=== PATIENT | female | born 1980 | race Caucasian/White ===

== ENCOUNTER 2021-08-23 03:54 | Emergency (ER) | payer BC ==
[2021-08-23] MEDS ORDERED: Ketorolac Tromethamine 30 MG/ML VIAL ONE (04:08)
[2021-08-23] MEDS ORDERED: Orphenadrine Citrate 60 MG/2 ML VIAL IM SCH (04:15)
[2021-08-23 04:38] LABS: #Basophils 0.1 thou/uL (0.0-0.2); #Eosinphils 0.1 thou/uL (0.0-0.7); #Lymphocytes 2.2 thou/uL (1.20-3.40); #Monocytes 0.5 thou/uL (0.11-0.59); #Neutrophils 3.6 thou/uL (1.40-6.50); %Basophils 1.4 % (0.0-1.0); %Eosinophils 1.5 % (0.0-10.0); %Lymphocytes 33.6 % (21.0-51.0); %Neutrophils 56.5 % (42.0-75.0); Hemoglobin 10.5 g/dL (12.0-16.0); Mean Corpuscular HGB CONC 31.6 g/dL (32.0-36.0); Mean Corpuscular Hemoglobin 27.3 pg (27.0-31.0); Mean Corpuscular Volume 86.5 fL (78.0-98.0); Mean Platelet Volume 8.5 fL (7.4-10.4); Platelet Count 263 thou/uL (130-400); RBC Distribution Width 13.7 % (11.5-14.5); Red Blood Cell (RBC) Count 3.86 mill/uL (4.20-5.40); White Blood Cell (WBC) Count 6.4 thou/uL (4.8-10.8)
[2021-08-23 04:58] LABS: ALT (SGPT) 39 U/L (8-55); AST (SGOT) 114 U/L (5-34); Albumin 3.9 g/dL (3.5-5.0); Alkaline Phosphatase 52 U/L (40-110); Anion Gap 13 mmol/L (10-20); BUN (Urea Nitrogen) 10 mg/dL (7.0-18.7); Bilirubin, Total 0.6 mg/dL (0.2-1.2); Calc. Creatinine Clearance 0 mL/min (70-130); Calcium 8.6 mg/dL (7.8-10.44); Carbon Dioxide 23 mmol/L (22-29); Chloride 107 mmol/L (98-107); Globulin 2.4 g/dL (2.4-3.5); Glucose 94 mg/dL (70-105); Potassium 3.7 mmol/L (3.5-5.1); Protein, Total 6.3 g/dL (6.0-8.3); Sodium 139 mmol/L (136-145)
[2021-08-23] MEDS ORDERED: Ondansetron PF 4 MG/2 ML Vial ONE (05:19)
[2021-08-23] MEDS ORDERED: Morphine 4 MG/ML VIAL ONE (05:19)
[2021-08-23] MEDS ORDERED: Morphine 2 MG/ML VIAL ONE (06:15)
== END 2021-08-23 06:25 | disposition home or self-care (01) ==
LOC: ERS 03:54
DX: M25.511 Pain in right shoulder (principal); F17.210 Nicotine dependence, cigarettes, uncomplicated
CPT/HCPCS: 36415; 71045; 80053; 84484; 85025; 93005; 96372; 96374; 96375; 96376; J1885; J2270; J2360; J2405

== ENCOUNTER 2022-11-15 12:32 | Outpatient (CLI) | payer BC ==
[~2022-11-15 12:32] MED LIST: Magnevist 469MG/ML 20 ML VIAL ONE
== END 2022-11-15 12:33 | disposition home or self-care (01) ==
LOC: BICMRI 12:32
PROVIDERS: ATTEND Orthopaedic Surgery Hand Surgery
DX: D48.7 Neoplasm of uncertain behavior of other specified sites (principal); M79.89 Other specified soft tissue disorders; R93.6 Abnormal findings on diagnostic imaging of limbs; M89.8X4 Other specified disorders of bone, hand
CPT/HCPCS: A9579

== ENCOUNTER 2023-04-27 08:00 | Outpatient (CLI) | payer BC | END 2023-04-27 08:01 | disposition home or self-care (01) | LOC: SCSMRI 08:00 | PROVIDERS: ATTEND Family Medicine | DX: M47.22 Other spondylosis with radiculopathy, cervical region (principal); M48.02 Spinal stenosis, cervical region; M47.26 Other spondylosis with radiculopathy, lumbar region; M47.817 Spondylosis without myelopathy or radiculopathy, lumbosacral region; M51.16 Intervertebral disc disorders with radiculopathy, lumbar region; M51.37 Other intervertebral disc degeneration, lumbosacral region | CPT/HCPCS: 72148; 72156 ==

== ENCOUNTER 2024-02-13 13:10 | Outpatient (CLI) | payer BC | END 2024-02-13 13:11 | disposition home or self-care (01) | LOC: SCSMRI 13:10 | PROVIDERS: ATTEND Family Medicine | DX: M47.22 Other spondylosis with radiculopathy, cervical region (principal); M48.02 Spinal stenosis, cervical region; Z98.890 Other specified postprocedural states | CPT/HCPCS: 72156 ==